=== PATIENT | male | born 1980 | race Caucasian/White ===

== ENCOUNTER 2017-03-12 08:04 | Emergency (ER) | payer OTHER ==
[~2017-03-12] VITALS: Ht 172.7 cm; Wt 123.0 kg
[~2017-03-12 08:04] MED LIST: BISM262O23 PO; OMEP20CA16 PO; ONDA4TAB35 PO
[2017-03-12 08:06] VITALS: Ht 172.7 cm; Wt 123.0 kg
--- NOTE | 2017-03-12 08:21 | ERD ---
ER Documentation Chief Complaint Date/Time DATE: 03/12/17 TIME: 08:13 Chief Complaint HPI 36-year-old male presents to the emergency department for bilateral ear pain for 1-1/2 week, throat pain for 2 days. Denies headache, dizziness, blurred vision, neck pain, shoulder pain, difficulty swallowing, chest pain, back pain, nausea, vomiting, diarrhea, constipation, urinary symptoms, recent travel, recent exposure to any illness, recent antibiotic use in the last 3 months, fever, chills, numbness or tingling sensation, unilateral deficit. No known drug allergies. Past medical history of diverticulitis. Surgical history of stomach secondary to diverticulitis. Social: Works at a warehouse. Smokes medical marijuana. Denies smoking cigarettes, use of illegal drugs, use of alcoholic beverages. ROS All systems reviewed and are negative except as per history of present illness. Medications Home Meds Active Scripts Bismuth Subsalicylate* (Pepto-Bismol*) 262 Mg/15 Ml Oral.susp, 30 ML PO Q6H Y for PAIN, #240 ML 0 Refills Prov:TATIANA ABREU PA-C 10/02/15 Omeprazole* (Omeprazole*) 20 Mg Capsule.dr, 20 MG PO BID, #60 CAP 0 Refills Prov:TATIANA ABREU PA-C 10/02/15 Ondansetron Hcl* (Zofran* ODT) 4 mg -ODT Tab.disper, 4 MG PO DAILY Y for NAUSEA AND/OR VOMITING, #10 TAB 0 Refills Prov:TATIANA ABREU PA-C 10/02/15 Reported Medications [None] No Conflict Check 05/04/12 Allergies Allergies: Coded Allergies: Egg (Verified Allergy, HIVES, 10/20/12) PMhx/Soc History of Surgery: Yes (HERNIA REPAIR X 5, COLOSTOMY (REVERSAL), GALLBLADDER ) Anesthesia Reaction: No Hx Neurological Disorder: No Hx Respiratory Disorders: No Hx Cardiac Disorders: No Hx Psychiatric Problems: No Hx Miscellaneous Medical Probl: Yes (DIVERTICULITIS ) Hx Alcohol Use: No Hx Substance Use: No Hx Tobacco Use: No Smoking Status: Never smoker Physical Exam Vitals Vital Signs Date Time Temp Pulse Resp B/P Pulse Ox O2 Delivery O2 Flow Rate FiO2 03/12/17 08:06 97.6 81 20 139/85 96 Physical Exam Const: [] Head: Atraumatic Eyes: Normal Conjunctiva ENT: Nose and Mouth. Bilateral TM is erythematous. No bleeding and no discharges to bilateral ear. Hearing is intact to bilateral ears. Uvula is in midline and not displaced. Tonsils are +2 bilaterally with erythema and with mild exudates. Tolerating secretions. Patent airway. Speaks full and clear sentences. Neck: Full range of motion..~ No meningismus. Resp: Clear to auscultation bilaterally Cardio: Regular rate and rhythm, no murmurs Abd: Soft, non tender, non distended. Normal bowel sounds Skin: No petechiae or rashes Back: No midline or flank tenderness Ext: No cyanosis, or edema Neur: Awake and alert Psych: Normal Mood and Affect Procedures/MDM 36-year-old male presents to the emergency department for bilateral ear pain for 1-1/2 week, throat pain for 2 days. Physical exam: Bilateral TMs are erythematous. Hearing is intact. No discharges and no bleeding to bilateral ears. Uvula is in midline not displaced. Tonsils are +2 bilaterally with mild exudates. Differential diagnosis: Meningitis versus otitis media versus sinusitis versus upper respiratory infection Medical decision making: Discharge with a final diagnosis of strep throat, otitis media, throat pain. Prescribed with Augmentin, Motrin. Follow PCP in the next 24-48 hours. Come back here in the emergency department for any new symptoms or any worsening of symptoms. All questions and concerns are answered. Patient verbalized understanding and agreed with plan of care. Hemodynamically stable on discharge. Departure Diagnosis: Primary Impression: Strep throat Additional Impressions: Otitis media Sore throat Condition: Good Additional Instructions: Follow PCP in the next 24-48 hours. Come back here in the emergency department for any new symptoms or any worsening of symptoms. All questions and concerns are answered. Patient verbalized understanding and agreed with plan of care. JAQUELINE DRAKE Mar 12, 2017 08:21
[2017-03-12] MEDS ORDERED: AMOX1TAB10 PO ×2 (08:23→08:28)
[2017-03-12] MEDS ORDERED: ACET500C5 PO ×2 (08:24→08:28)
[2017-03-12] MEDS ORDERED: IBUP800T25 PO ×2 (08:24→08:28)
== END 2017-03-12 08:39 | disposition home or self-care (01) ==
LOC: FTE 08:04
DX: J02.0 Streptococcal pharyngitis (principal); H66.93 Otitis media, unspecified, bilateral
CPT/HCPCS: 99283

== ENCOUNTER 2017-03-22 14:44 | Emergency (ER) | payer OTHER ==
[~2017-03-22] VITALS: Ht 160 cm; Wt 98.0 kg
[~2017-03-22 14:44] MED LIST changes: +ACET500C5 PO; +AMOX1TAB10 PO; +IBUP800T25 PO
[2017-03-22 14:45] VITALS: Ht 160 cm; Wt 98.0 kg
[2017-03-22] MEDS ORDERED: LORA10TA3 PO (15:13)
[2017-03-22] MEDS ORDERED: PSEU120T11 PO (15:13)
[2017-03-22] MEDS ORDERED: AMO500 PO (15:13)
--- NOTE | 2017-03-22 15:25 | ERD ---
ER Documentation Chief Complaint Date/Time DATE: 03/22/17 TIME: 15:19 Chief Complaint reight ear pain HPI 36-year-old male presents with right-sided ear pain that is achy, intermittent sharp and in a year for the past 2 days. Patient states that he was previously treated with amoxicillin twice a day for 7 days, also treated for strep pharyngitis last week. Since then the pain has become slightly worse although it did improve and is returning now. He denies any fevers or chills, cough, trouble swallowing. ROS All systems reviewed and are negative except as per history of present illness. Medications Home Meds Active Scripts Loratadine* (Loratadine*) 10 Mg Tablet, 10 MG PO DAILY, #30 TAB Prov:ASHER GIL PA-C 03/22/17 Pseudoephedrine Hcl (Sudafe 12-Hour) 120 Mg Tablet.er, 120 MG PO BID Y for CONGESTION, #6 TAB.SA Prov:ASHER GIL PA-C 03/22/17 Amoxicillin* (Amoxicillin*) 500 Mg Cap, 500 MG PO TID for 7 Days, CAP Prov:ASHER GIL PA-C 03/22/17 Ibuprofen* (Motrin*) 800 Mg Tab, 800 MG PO Q8 Y for PAIN AND OR ELEVATED TEMP, # 30 TAB Prov:JAQUELINE DRAKE 03/12/17 Acetaminophen* (Tylophen*) 500 Mg Capsule, 1 CAP PO Q6H Y for PAIN AND OR ELEVATED TEMP, #20 CAP Prov:JAQUELINE DRAKE 03/12/17 Amoxicillin/Potassium Clav (Amox-Clav 875-125 mg Tablet) 875-125 mg Tab, 1 TAB PO BID for 7 Days, #14 TAB Prov:EMILYPADILLAJAQUELINE Rodriguez 03/12/17 Bismuth Subsalicylate* (Pepto-Bismol*) 262 Mg/15 Ml Oral.susp, 30 ML PO Q6H Y for PAIN, #240 ML 0 Refills Prov:TATIANA ABREU PA-C 10/02/15 Omeprazole* (Omeprazole*) 20 Mg Capsule.dr, 20 MG PO BID, #60 CAP 0 Refills Prov:TATIANA ABREU PA-C 10/02/15 Ondansetron Hcl* (Zofran* ODT) 4 mg -ODT Tab.disper, 4 MG PO DAILY Y for NAUSEA AND/OR VOMITING, #10 TAB 0 Refills Prov:BRADYTATIANA CARDENAS 10/02/15 Reported Medications [None] No Conflict Check 05/04/12 Allergies Allergies: Coded Allergies: Egg (Verified Allergy, HIVES, 10/20/12) PMhx/Soc History of Surgery: Yes (HERNIA REPAIR X 5, COLOSTOMY (REVERSAL), GALLBLADDER ) Anesthesia Reaction: No Hx Neurological Disorder: No Hx Respiratory Disorders: No Hx Cardiac Disorders: No Hx Psychiatric Problems: No Hx Miscellaneous Medical Probl: Yes (DIVERTICULITIS ) Hx Alcohol Use: No Hx Substance Use: No Hx Tobacco Use: No Physical Exam Vitals Vital Signs Date Time Temp Pulse Resp B/P Pulse Ox O2 Delivery O2 Flow Rate FiO2 03/22/17 14:45 98.4 94 18 160/87 99 Physical Exam General: Well-developed, well-nourished. The patient appears in no acute distress. HEENT: Head is normocephalic, atraumatic. No scleral icterus. Neck: Supple. Nontender. Right TM is erythematous, bulging, no perforation, otorrhea or discharge. Left ear is normal. Oropharynx is clear. Lungs: Clear to auscultation. Normal air movement. Heart: Regular rate and rhythm. S1 and S2 are normal. No murmurs, gallops, or rubs. Abdomen: Nondistended. Extremities: No clubbing or cyanosis. Moving extremities x 4. No weakness. Neurologic: Alert and oriented 3. No focal deficits. Normal speech and gait. Skin: Normal turgor. No rash or lesions. Procedures/MDM 36 year old male comes in with right otitis media, patient was partially treated with amoxicillin when he received a 7 day course twice a day. No signs of deep space infection, meningitis, honey's angina, strep pharyngitis. Departure Diagnosis: Primary Impression: Otitis media Condition: Good Patient Instructions: Otitis Media, Abx Tx (Adult) Additional Instructions: Call your primary care doctor TOMORROW for an appointment during the next 1-2 days.See the doctor sooner or return here if your condition worsens before your appointment time. ASHER GIL PA-C Mar 22, 2017 15:25
== END 2017-03-22 15:34 | disposition home or self-care (01) ==
LOC: FTE 14:44
DX: H66.91 Otitis media, unspecified, right ear (principal)
CPT/HCPCS: 99283